=== PATIENT | male | born 1965 | race Caucasian/White ===

== ENCOUNTER 2021-05-27 09:34 | Emergency (ER) | payer OTHER, BC ==
[2021-05-27] MEDS ORDERED: Ketorolac Tromethamine 30 MG/ML VIAL ONE (10:18)
== END 2021-05-27 11:00 | disposition home or self-care (01) ==
LOC: ERS 09:34
DX: M25.512 Pain in left shoulder (principal); M24.112 Other articular cartilage disorders, left shoulder; V69.9XXA Occupant (driver) (passenger) of heavy transport vehicle injured in unspecified traffic accident, initial encounter; W22.11XA Striking against or struck by driver side automobile airbag, initial encounter
CPT/HCPCS: 71046; 96372; J1885